=== PATIENT | male | born 1990 | race Hispanic/Latino ===

== ENCOUNTER 2020-11-05 13:20 | Emergency (ER) | payer OTHER ==
[~2020-11-05] VITALS: Ht 188 cm; Wt 98.9 kg
[2020-11-05 14:36] VITALS: BP 137/93; TEMP 98.7
== END 2020-11-05 14:40 | disposition home or self-care (01) ==
LOC: ED 13:46
DX: U07.1 COVID-19 (principal); J06.9 Acute upper respiratory infection, unspecified; F41.8 Other specified anxiety disorders
CPT/HCPCS: 99283